=== PATIENT | female | born 1970 | race Caucasian/White ===

== ENCOUNTER 2022-09-10 07:40 | Day surgery (SDC) | payer MEDICAID ==
[~2022-09-10] VITALS: Ht 154.9 cm; Wt 58.5 kg
[2022-09-10] MEDS ORDERED: LACTATED RINGERS 1,000 ML IV SCH (08:00)
[2022-09-10] MEDS ORDERED: BUPIVACAINE HCL/PF 0.5% (5MG/ML) 10ML ONE (08:09)
[2022-09-10] MEDS ORDERED: SKIN ADHESIVE 0.7 GM EA TOP ONE (08:09)
[2022-09-10] MEDS ORDERED: ACETAMINOPHEN 500MG TABLET ONE (08:46)
[2022-09-10] MEDS ORDERED: NON FORMULARY PATIENT HOME MED XX SCH (09:00)
[2022-09-10] MEDS ORDERED: BUPIVACAINE HCL 300 MG IMPLANT(XARACOLL) IL SCH (09:15)
[2022-09-10] MEDS ORDERED: FENTANYL CITRATE/PF 50MCG/ML 2ML VIAL ONE (09:52)
[2022-09-10] MEDS ORDERED: MIDAZOLAM HCL 2 MG/2 ML VIAL ONE (09:53)
[2022-09-10] MEDS ORDERED: PROPOFOL 200MG/20ML VIAL IV ONE (09:54)
[2022-09-10] MEDS ORDERED: DEXAMETHASONE 4MG/ML 1ML VIAL ONE (10:19)
[2022-09-10] MEDS ORDERED: METOCLOPRAMIDE HCL 10MG/2ML VIAL ONE (10:19)
[2022-09-10] MEDS ORDERED: EPHEDRINE SULFATE 50MG/ML VIAL ONE (10:19)
[2022-09-10] MEDS ORDERED: ROCURONIUM BROMIDE 10MG/ML VIAL 5ML IV ONE (10:19)
[2022-09-10] MEDS ORDERED: ONDANSETRON HCL 4MG/2ML INJ ONE (10:19)
[2022-09-10] MEDS ORDERED: MEPERIDINE HCL/PF 25MG/ML CPJ IV PRN (10:45)
[2022-09-10] MEDS ORDERED: FENTANYL CITRATE/PF 50MCG/ML 2ML VIAL IV PRN (10:45)
[2022-09-10] MEDS ORDERED: ONDANSETRON HCL 4MG/2ML INJ IV PRN (10:45)
[2022-09-10] MEDS ORDERED: HYDROMORPHONE HCL/PF 2MG/ML CPJ IV PRN (10:45)
[2022-09-10] MEDS ORDERED: CEFAZOLIN SODIUM 1000MG/VIAL ONE (10:48)
[2022-09-10] MEDS ORDERED: HYDR-4001 MT (12:16)
[2022-09-10] MEDS ORDERED: HYDR-4001 PO (12:16)
== END 2022-09-10 13:00 | disposition home or self-care (01) ==
LOC: OR 07:40
PROVIDERS: ATTEND Surgery
DX: K40.90 Unilateral inguinal hernia, without obstruction or gangrene, not specified as recurrent (principal); Z79.899 Other long term (current) drug therapy; Z98.890 Other specified postprocedural states; Z90.710 Acquired absence of both cervix and uterus; Z20.822 Contact with and (suspected) exposure to COVID-19
CPT/HCPCS: 49505; 87426; C1781; C9803; J0690; J1100; J2250; J2405; J2704; J2765; J3010; J3490; C9089